=== PATIENT | male | born 1975 | race Hispanic/Latino ===

== ENCOUNTER 2016-07-13 00:36 | Emergency (ER) | payer OTHER ==
[2016-07-13 01:22] LABS: BASO # 0.1 K/mm3 (0.0-0.2); BASO % 0.7 % (0.0-1.0); EOS # 0.4 K/mm3 (0.0-0.50); LARGE UNSTAINED CELL # 0.3 K/mm3 (0.0-0.4); LARGE UNSTAINED CELL % 3.3 % (0.0-4.0); LYMPH # 3.7 K/mm3 (1.5-4.5); LYMPH % 35.6 % (24.0-44.0); MEAN CORPUSCULAR HEMOGLOBIN 29.6 pg (27.0-33.0); MEAN CORPUSCULAR HGB CONC 33.9 g/dl (32.0-36.5); MEAN CORPUSCULAR VOLUME 87.4 fl (80.0-96.0); MONO # 0.7 K/mm3 (0.0-0.8); MONO % 6.6 % (0.0-5.0); NEUTROPHILS # 5.2 K/mm3 (1.8-7.7); NEUTROPHILS % 49.7 % (36.0-66.0); PLATELET COUNT, AUTOMATED 295 k/mm3 (150-450); RED CELL DISTRIBUTION WIDTH 12.9 % (11.5-14.5); WHITE BLOOD COUNT 10.4 K/mm3 (4.0-10.0)
[2016-07-13] MEDS ORDERED: KETOROLAC 30 MG/ML VIAL (J1885) As Ordered ONE (01:24)
--- NOTE | 2016-07-13 01:30 | REPUSA ---
CT of the abdomen and pelvis without contrast Clinical statement: Pain. Technique: Multiple axial CT images were obtained from the base of the lungs to the floor of the pelv is utilizing 5 mm axial slices without administration of contrast. Coronal and sagittal reconstructio ns were also obtained. No comparison is available. Findings: Chest: The visualized lung bases are clear. Abdomen: The kidneys are normal in size bilaterally. There is moderate right-sided hydronephrosis cau sed by a 3 mm obstructing stone in the proximal right ureter. The left renal collecting system is unr emarkable. The liver, spleen, pancreas, gallbladder and adrenal glands are unremarkable. The aorta de monstrates normal caliber and contour. There is no abdominal lymphadenopathy or ascites. Pelvis: The bowel is unremarkable, with no obstructive or inflammatory changes. The appendix is doroteo l. The urinary bladder is within normal limits. There is no pelvic lymphadenopathy or ascites. The ot her pelvic structures appear unremarkable. Bones: There are no suspicious osseous abnormalities seen. Impression: 1. Moderate right-sided hydronephrosis caused by a 3 mm obstructing stone in the proximal right urete r. 2. No obstructive or inflammatory bowel changes.
[2016-07-13 01:45] LABS: ALBUMIN/GLOBULIN RATIO 1.11 (1.00-1.93); ALKALINE PHOSPHATASE 91 U/L (45-117); ALT/SGPT 39 U/L (12-78); AMYLASE 109 U/L (25-115); ANION GAP 9 MEQ/L (8-16); AST/SGOT 25 U/L (15-37); BILIRUBIN,DIRECT 0.2 MG/DL (0.0-0.2); BILIRUBIN,TOTAL 1.1 MG/DL (0.2-1.0); BLOOD UREA NITROGEN 15 MG/DL (7-18); CALCIUM LEVEL 8.6 MG/DL (8.5-10.1); CARBON DIOXIDE LEVEL 28 MEQ/L (21-32); CHLORIDE LEVEL 105 MEQ/L (98-107); CREATININE FOR GFR 1.37 MG/DL (0.70-1.30); GLOMERULAR FILTRATION RATE > 60.0 (>60); GLUCOSE, FASTING 118 MG/DL (70-105); POTASSIUM SERUM 3.8 MEQ/L (3.5-5.1); SODIUM LEVEL 142 MEQ/L (136-145); TOTAL PROTEIN 7.6 GM/DL (6.4-8.2)
[2016-07-13] MEDS ORDERED: TAMSULOSIN 0.4 MG CAP As Ordered ONE (01:54)
[2016-07-13] MEDS ORDERED: HYDROmorphone HCL 1 MG/ML SYRINGE (J1170) As Ordered ONE (03:16)
--- NOTE | 2016-07-13 05:52 | EDDOCDS ---
Physician Documentation [facility] Name: Sina Scott Age: 40 yrs Sex: Male : 1975 Arrival Date: 07/13/2016 Time: 00:36 Bed 9 Private MD: Disposition: 07/13/16 05:34 Discharged to Home/Self Care. Impression: Calculus of ureter. - Condition is Stable. - Prescriptions for [place] 5- 325 mg Oral Tablet - take 1 tablet by ORAL route every 6 hours As needed MDD: 4 tabs; 20 tablet. Flomax 0.4 mg Oral Capsule, Sust. Release 24 hr - take 1 capsule by ORAL route once daily 1/2 hour following the same meal each day; 30 capsule. - Medication Reconciliation, Local Pharmacy Hours form. - Follow up: Isidoro Sow; When: Call to arrange an appointment; Reason: Recheck today's complaints, To establish care. - Problem is new. - Symptoms have improved. Historical: - Allergies: No known drug Allergies; - Home Meds: 1. none - PMHx: none; - PSHx: none; - Social history: Smoking status: Patient states was never smoker of tobacco. No barriers to communication noted, The patient speaks fluent Ghanaian, Speaks appropriately for age. - Family history: Not pertinent. - : The pt / caregiver states he / she is not on anticoagulants. Home medication list is obtained from the patient. - Exposure Risk Screening:: None identified. Vital Signs: 07/13 00:55 BP 136 / 72; Pulse 62; Resp 16; Temp 98.5(TE); Pulse Ox 98% on R/A; Weight 79.38 kg / jo3 175 lbs; Height 5 ft. 6 in. (167.64 cm); Pain 10/10; 01:57 Pain 5/10; af2 04:27 BP 113 / 67; Pulse 67; Resp 18 S; Temp 97.6(TE); Pulse Ox 98% on R/A; af2 05:42 BP 110 / 65; Pulse 69; Resp 20; Temp 96.4(O); Pulse Ox 97% on R/A; Pain 0/10; jmv 00:55 Body Mass Index 28.25 (79.38 kg, 167.64 cm) jo3 MDM: 01:01 IV Saline Lock ordered. cs11 01:01 NS 0.9% 1000 ml IV at bolus once ordered. cs11 01:01 ketorolac 30 mg IVP once ordered. cs11 01:02 CBC with Diff Ordered. EDMS 01:02 MED Profile Ordered. EDMS 01:02 Liver Profile Ordered. EDMS 01:02 Amylase Ordered. EDMS 01:02 Lipase Ordered. EDMS 01:02 Urinalysis Ordered. EDMS 01:02 Urine Culture Ordered. EDMS 01:02 CT ABD & PELVIS: No Contrast Ordered. EDMS 01:28 Tamsulosin Extended Release 24 hour Capsule 0.4 mg PO once ordered. cs11 02:14 Financial registration complete. hs2 02:14 [facility] [place] was scanned into [employer] and attached to record. hs2 03:00 NS 0.9% 1000 ml IV at bolus once ordered. cs11 03:00 Dilaudid - HYDROmorphone 0.5 mg IVP once ordered. cs11 05:31 CBC with Diff Reviewed. cs11 05:31 MED Profile Reviewed. cs11 05:31 Liver Profile Reviewed. cs11 05:31 Urinalysis Reviewed. cs11 05:31 Amylase Reviewed. cs11 05:31 Lipase Reviewed. cs11 05:31 CT ABD & PELVIS: No Contrast Reviewed. cs11 Administered Medications: 01:27 Drug: NS 0.9% 1000 ml [sodium chloride 0.9 % intravenous solution] Route: IV; Rate: af2 bolus; Site: right antecubital; 03:04 Follow up: IV Status: Completed infusion af2 01:27 Drug: ketorolac 30 mg [ketorolac 30 mg/mL (1 mL) injection solution (1 mL)] Route: IVP; af2 Site: right antecubital; 01:57 Follow up: Pain 5/10 Adult; Response: Pain is decreased af2 01:57 Drug: Tamsulosin 0.4 mg [tamsulosin 0.4 mg capsule (1 caps)] Route: PO; af2 02:12 Follow up: Response: No Adverse Reaction af2 03:23 Drug: NS 0.9% 1000 ml [sodium chloride 0.9 % intravenous solution] Route: IV; Rate: af2 bolus; Site: right antecubital; 04:27 Follow up: IV Status: Completed infusion af2 03:23 Drug: Dilaudid - HYDROmorphone 0.5 mg [hydromorphone 1 mg/mL injection syringe (0.5 af2 mL)] Route: IVP; Site: right antecubital; 04:27 Follow up: Response: Pain is decreased af2 Signatures: Dispatcher [employer] Teresa PazRN RN jo3 Pieter Glez, DO DO cs11 Alayna Greene RN RN af2 Marla Redding, Reg Reg hs2 The chart was reviewed and I authenticate all verbal orders and agree with the evaluation and treatment provided.Attachments: 02:14 [facility] Payment Agreement hs2 MTDD
--- NOTE | 2016-07-13 05:52 | EDDOCDS ---
Nurse's Notes [facility] Name: Sina Scott Age: 40 yrs Sex: Male : 1975 Arrival Date: 07/13/2016 Time: 00:36 Bed 9 Private MD: Diagnosis: Calculus of ureter Presentation: 07/13 00:54 Presenting complaint: Patient states: Right sided flank pain that started approximately jo3 2 hours ago. Also reports nausea and vomiting. Acute neurological deficits are not present. Mechanism of Injury: No Mechanism of Injury. Adult Sepsis Screening: The patient does not have new or worsening altered mentation. Patient's respiratory rate is less than 22. Systolic blood pressure is greater than 100. Patient has a qSOFA score of 0- Negative Sepsis Screen. Suicide/Homicide risk assessment- the patient denies having any suicidal and/or homicidal ideations and does not present with any other emotional, behavioral or mental health complaints. Status: The patient is an active duty public service officer. Transition of care: patient was not received from another setting of care. 00:54 Acuity: DIONY Level 3 jo3 00:54 Method Of Arrival: Walkin/Carried/Asstd jo3 Triage Assessment: 00:55 General: Appears in no apparent distress, uncomfortable, Behavior is appropriate for jo3 age, cooperative. Pain: Pain At worst was 10 out of 10 on a pain scale. HIV screening NA for this visit Offered previously. Neurological: Level of Consciousness is awake, alert, Oriented to person, place, time. Respiratory: Airway is patent Respiratory effort is even, unlabored. Derm: Skin is pink, warm & dry. Historical: - Allergies: No known drug Allergies; - Home Meds: 1. none - PMHx: none; - PSHx: none; - Social history: Smoking status: Patient states was never smoker of tobacco. No barriers to communication noted, The patient speaks fluent Gabonese, Speaks appropriately for age. - Family history: Not pertinent. - : The pt / caregiver states he / she is not on anticoagulants. Home medication list is obtained from the patient. - Exposure Risk Screening:: None identified. Screenin:15 Screening information is obtained from the patient. Fall risk: No risks identified. af2 Assistance ADL's: requires no assistance with activities of daily living. Abuse/DV Screen: The patient / caregiver reports he/she is: not in a situation that causes fear, pain or injury. Nutritional screening: No deficits noted. Advance Directives: There is no active DNR order. home support is adequate. Assessment: 01:16 General: Appears in no apparent distress, comfortable, Behavior is appropriate for age, af2 cooperative. Respiratory: Airway is patent Respiratory effort is even, unlabored. : Reports hematuria pain in bilateral flank(s). 01:57 Musculoskeletal: No deficits noted. af2 03:00 General: Appears in no apparent distress, comfortable, Behavior is appropriate for age, af2 cooperative. Respiratory: Airway is patent Respiratory effort is even, unlabored. : Reports pain in bilateral flank(s). 04:00 General: Appears in no apparent distress, comfortable, Behavior is appropriate for age, af2 cooperative. Respiratory: Airway is patent Respiratory effort is even, unlabored. : Denies pain in bilateral in lower back. Vital Signs: 00:55 BP 136 / 72; Pulse 62; Resp 16; Temp 98.5(TE); Pulse Ox 98% on R/A; Weight 79.38 kg; jo3 Height 5 ft. 6 in. (167.64 cm); Pain 10/10; 01:57 Pain 5/10; af2 04:27 BP 113 / 67; Pulse 67; Resp 18 S; Temp 97.6(TE); Pulse Ox 98% on R/A; af2 05:42 BP 110 / 65; Pulse 69; Resp 20; Temp 96.4(O); Pulse Ox 97% on R/A; Pain 0/10; jmv 00:55 Body Mass Index 28.25 (79.38 kg, 167.64 cm) jo3 Vitals: 00:55 Log In Time: July 13, 2016 at 00:48. jo3 ED Course: 00:37 Patient visited by Marla Redding Reg. hs2 00:37 Patient moved to Waiting hs2 00:55 Triage Initiated jo3 00:57 Patient visited by Teresa Escoto RN. jo3 00:57 Alayna Greene,RN is Primary Nurse. jo3 00:57 Patient moved to 9 jo3 00:59 Pieter Glez DO is Attending Physician. cs11 00:59 Patient visited by Pieter Glez DO. cs11 01:15 The patient / caregiver is instructed regarding the plan of care and ED course. Patient af2 has correct armband on for positive identification. 01:15 Urine Culture Sent. af2 01:15 Urinalysis Sent. af2 01:15 Lipase Sent. af2 01:15 Amylase Sent. af2 01:15 Liver Profile Sent. af2 01:15 MED Profile Sent. af2 01:15 CBC with Diff Sent. af2 01:16 Inserted saline lock: 20 gauge in right antecubital area and blood collected. The af2 patient tolerated the procedure well. 01:16 No procedures done that require assistance. af2 01:17 Patient visited by Alayna Greene RN. af2 01:52 Patient visited by Alayna Greene RN. af2 01:57 CT ABD & PELVIS: No Contrast Returned. EDMS 01:58 Patient visited by Alayna Greene RN. af2 02:14 [facility] Payment Agreement was scanned into [employer] and attached to record. hs2 03:03 Patient visited by Alayna Greene RN. af2 03:30 Patient visited by Alayna Greene RN. af2 04:25 Patient visited by Alayna Greene RN. af2 04:58 Patient visited by Alayna Greene RN. af2 05:33 Isidoro Sow is Referral Physician. cs11 05:43 Patient visited by Nicholas Latif PCA. peter Administered Medications: 01:27 Drug: NS 0.9% 1000 ml [sodium chloride 0.9 % intravenous solution] Route: IV; Rate: af2 bolus; Site: right antecubital; 03:04 Follow up: IV Status: Completed infusion af2 01:27 Drug: ketorolac 30 mg [ketorolac 30 mg/mL (1 mL) injection solution (1 mL)] Route: IVP; af2 Site: right antecubital; :57 Follow up: Pain 5/10 Adult; Response: Pain is decreased af2 01:57 Drug: Tamsulosin 0.4 mg [tamsulosin 0.4 mg capsule (1 caps)] Route: PO; af2 02:12 Follow up: Response: No Adverse Reaction af2 03:23 Drug: NS 0.9% 1000 ml [sodium chloride 0.9 % intravenous solution] Route: IV; Rate: af2 bolus; Site: right antecubital; 04:27 Follow up: IV Status: Completed infusion af2 03:23 Drug: Dilaudid - HYDROmorphone 0.5 mg [hydromorphone 1 mg/mL injection syringe (0.5 af2 mL)] Route: IVP; Site: right antecubital; 04:27 Follow up: Response: Pain is decreased af2 Order Results: Lab Order: CBC with Diff; SPEC'M 07/13/16 01:12 Test: WHITE BLOOD COUNT; Value: 10.4; Range: 4.0-10.0; Abnormal: Above high normal; Units: K/mm3; Status: F Test: RED BLOOD COUNT; Value: 5.09; Range: 4.30-6.10; Units: M/mm3; Status: F Test: HEMOGLOBIN; Value: 15.1; Range: 14.0-18.0; Units: g/dl; Status: F Test: HEMATOCRIT; Value: 44.4; Range: 42.0-52.0; Units: %; Status: F Test: MEAN CORPUSCULAR VOLUME; Value: 87.4; Range: 80.0-96.0; Units: fl; Status: F Test: MEAN CORPUSCULAR HEMOGLOBIN; Value: 29.6; Range: 27.0-33.0; Units: pg; Status: F Test: MEAN CORPUSCULAR HGB CONC; Value: 33.9; Range: 32.0-36.5; Units: g/dl; Status: F Test: RED CELL DISTRIBUTION WIDTH; Value: 12.9; Range: 11.5-14.5; Units: %; Status: F Test: PLATELET COUNT, AUTOMATED; Value: 295; Range: 150-450; Units: k/mm3; Status: F Test: NEUTROPHILS %; Value: 49.7; Range: 36.0-66.0; Units: %; Status: F Test: LYMPH %; Value: 35.6; Range: 24.0-44.0; Units: %; Status: F Test: MONO %; Value: 6.6; Range: 0.0-5.0; Abnormal: Above high normal; Units: %; Status: F Test: EOS %; Value: 4.0; Range: 0.0-3.0; Abnormal: Above high normal; Units: %; Status: F Test: BASO %; Value: 0.7; Range: 0.0-1.0; Units: %; Status: F Test: LARGE UNSTAINED CELL %; Value: 3.3; Range: 0.0-4.0; Units: %; Status: F Test: NEUTROPHILS #; Value: 5.2; Range: 1.8-7.7; Units: K/mm3; Status: F Test: LYMPH #; Value: 3.7; Range: 1.5-4.5; Units: K/mm3; Status: F Test: MONO #; Value: 0.7; Range: 0.0-0.8; Units: K/mm3; Status: F Test: EOS #; Value: 0.4; Range: 0.0-0.50; Units: K/mm3; Status: F Test: BASO #; Value: 0.1; Range: 0.0-0.2; Units: K/mm3; Status: F Test: LARGE UNSTAINED CELL #; Value: 0.3; Range: 0.0-0.4; Units: K/mm3; Status: F Lab Order: MED Profile; [facility] 07/13/16 01:12 Test: GLUCOSE, FASTING; Value: 118; Range: 70-105; Abnormal: Above high normal; Units: MG/DL; Status: F Test: BLOOD UREA NITROGEN; Value: 15; Range: 7-18; Units: MG/DL; Status: F Test: CREATININE FOR GFR; Value: 1.37; Range: 0.70-1.30; Abnormal: Above high normal; Units: MG/DL; Status: F Test: GLOMERULAR FILTRATION RATE; Value: > 60.0; Range: >60; Status: F Test: SODIUM LEVEL; Value: 142; Range: 136-145; Units: MEQ/L; Status: F Test: POTASSIUM SERUM; Value: 3.8; Range: 3.5-5.1; Units: MEQ/L; Status: F Test: CHLORIDE LEVEL; Value: 105; Range: 98-107; Units: MEQ/L; Status: F Test: CARBON DIOXIDE LEVEL; Value: 28; Range: 21-32; Units: MEQ/L; Status: F Test: ANION GAP; Value: 9; Range: 8-16; Units: MEQ/L; Status: F Test: CALCIUM LEVEL; Value: 8.6; Range: 8.5-10.1; Units: MG/DL; Status: F Test Note: ; Units are mL/min/1.73 m2 Chronic Kidney Disease Staging per NKF: Stage I & II GFR >=60 Normal to Mildly Decreased Stage III GFR 30-59 Moderately Decreased Stage IV GFR 15-29 Severely Decreased Stage V GFR <15 Very Little GFR Left ESRD GFR <15 on ACTUARIAL ASSOCIATE Lab Order: Liver Profile; 07/13/16 01:12 Test: AST/SGOT; Value: 25; Range: 15-37; Units: U/L; Status: F Test: ALT/SGPT; Value: 39; Range: 12-78; Units: U/L; Status: F Test: ALKALINE PHOSPHATASE; Value: 91; Range: 45-117; Units: U/L; Status: F Test: BILIRUBIN,TOTAL; Value: 1.1; Range: 0.2-1.0; Abnormal: Above high normal; Units: MG/DL; Status: F Test: BILIRUBIN,DIRECT; Value: 0.2; Range: 0.0-0.2; Units: MG/DL; Status: F Test: TOTAL PROTEIN; Value: 7.6; Range: 6.4-8.2; Units: GM/DL; Status: F Test: ALBUMIN; Value: 4.0; Range: 3.2-5.2; Units: GM/DL; Status: F Test: ALBUMIN/GLOBULIN RATIO; Value: 1.11; Range: 1.00-1.93; Status: F Lab Order: Amylase; [facility]07/13/16 01:12 Test: AMYLASE; Value: 109; Range: 25-115; Units: U/L; Status: F Lab Order: Lipase; [facility]07/13/16 01:12 Test: LIPASE; Value: 167; Range: 73-393; Units: U/L; Status: F Lab Order: Urinalysis; 07/13/16 01:12 Test: APPEARANCE, URINE; Value: HAZY; Range: CLEAR; Status: F Test: COLOR, URINE; Value: YELLOW; Range: YELLOW; Status: F Test: PH,URINE; Value: 6.0; Range: 5.0-9.0; Units: UNITS; Status: F Test: SPECIFIC GRAVITY URINE AUTO; Value: 1.024; Range: 1.002-1.035; Status: F Test: PROTEIN, URINE AUTO; Value: 1+; Range: NEGATIVE; Abnormal: Above high normal; Units: mg/dL; Status: F Test: GLUCOSE, URINE (UA) AUTO; Value: NEGATIVE; Range: NEGATIVE; Units: mg/dL; Status: F Test: KETONE, URINE AUTO; Value: NEGATIVE; Range: NEGATIVE; Units: mg/dL; Status: F Test: UROBILINOGEN, URINE AUTO; Value: 0.2; Range: 0.0-2.0; Units: mg/dL; Status: F Test: BILIRUBIN, URINE AUTO; Value: NEGATIVE; Range: NEGATIVE; Status: F Test: NITRITE, URINE AUTO; Value: NEGATIVE; Range: NEGATIVE; Status: F Test: LEUKOCYTE ESTERASE, URINE AUTO; Value: NEGATIVE; Range: NEGATIVE; Status: F Test: BLOOD, URINE BLOOD; Value: 3+; Range: NEGATIVE; Abnormal: Above high normal; Status: F Test: WBC, URINE AUTO; Value: 3; Range: 0-3; Units: /HPF; Status: F Test: RBC, URINE AUTO; Value: TNTC; Range: 0-3; Abnormal: Above high normal; Units: /HPF; Status: F Test: BACTERIA, URINE AUTO; Value: NEGATIVE; Range: NEGATIVE; Status: F Test: SQUAMOUS EPITHELIAL CELL UR AU; Value: 0; Range: 0-6; Units: /HPF; Status: F Test: MUCUS, URINE; Value: SMALL; Range: NEGATIVE; Status: F Test: HYALINE CAST, URINE AUTO; Value: 0; Range: 0-1; Units: /LPF; Status: F Radiology Order: CT ABD & PELVIS: No Contrast Test: CT ABD & PELVIS: No Contrast REASON FOR EXAMINATION: Renal colic; ; CT of the abdomen and pelvis without contrast; Clinical statement: Pain.; Technique: Multiple axial CT images were obtained from the base of the lungs to the floor of the pelv; is utilizing 5 mm axial slices without administration of contrast. Coronal and sagittal reconstructio; ns were also obtained.; No comparison is available.; Findings:; Chest: The visualized lung bases are clear.; Abdomen: The kidneys are normal in size bilaterally. There is moderate right-sided hydronephrosis cau; sed by a 3 mm obstructing stone in the proximal right ureter. The left renal collecting system is unr; emarkable. The liver, spleen, pancreas, gallbladder and adrenal glands are unremarkable. The aorta de; monstrates normal caliber and contour. There is no abdominal lymphadenopathy or ascites.; Pelvis: The bowel is unremarkable, with no obstructive or inflammatory changes. The appendix is doroteo; l. The urinary bladder is within normal limits. There is no pelvic lymphadenopathy or ascites. The ot; her pelvic structures appear unremarkable.; Bones: There are no suspicious osseous abnormalities seen.; Impression:; 1. Moderate right-sided hydronephrosis caused by a 3 mm obstructing stone in the proximal right urete; r.; 2. No obstructive or inflammatory bowel changes.; ; Outcome: 05:34 Discharge ordered by Provider. cs11 05:50 Discharge Assessment: Patient awake, alert and oriented x 3. No cognitive and/or af2 functional deficits noted. Patient verbalized understanding of disposition instructions. patient administered narcotics - no. The following High Risk Discharge criteria are identified: None. Discharged to home ambulatory. Condition: stable. Discharge instructions given to patient, Instructed on discharge instructions, follow up and referral plans. medication usage, Demonstrated understanding of instructions, medications, Pt was receptive of discharge instructions/ teaching. No special radiology studies were completed. Property :Personal belongings accompany Pt. 05:51 Patient left the ED. af2 Signatures: Dispatcher [employer] EDSD Teresa Escoto RN RN jo3 Pieter Glez, DO DO cs11 Alayna Greene RN RN af2 Marla Redding, Reg Reg hs2 Nicholas Latif, MERCHANDISING MANAGER MERCHANDISING MANAGER jmv MTDD
--- NOTE | 2016-07-15 06:51 | EDDOCDS ---
Physician Documentation [facility] Name: Sina Scott Age: 40 yrs Sex: Male : 1975 Arrival Date: 07/13/2016 Time: 00:36 Bed 9 Private MD: Disposition: 07/13/16 05:34 Discharged to Home/Self Care. Impression: Calculus of ureter. - Condition is Stable. - Prescriptions for [place] 5- 325 mg Oral Tablet - take 1 tablet by ORAL route every 6 hours As needed MDD: 4 tabs; 20 tablet. Flomax 0.4 mg Oral Capsule, Sust. Release 24 hr - take 1 capsule by ORAL route once daily 1/2 hour following the same meal each day; 30 capsule. - Medication Reconciliation, Local Pharmacy Hours form. - Follow up: Isidoro Sow; When: Call to arrange an appointment; Reason: Recheck today's complaints, To establish care. - Problem is new. - Symptoms have improved. Historical: - Allergies: No known drug Allergies; - Home Meds: 1. none - PMHx: none; - PSHx: none; - Social history: Smoking status: Patient states was never smoker of tobacco. No barriers to communication noted, The patient speaks fluent Czech, Speaks appropriately for age. - Family history: Not pertinent. - : The pt / caregiver states he / she is not on anticoagulants. Home medication list is obtained from the patient. - Exposure Risk Screening:: None identified. Vital Signs: 07/13 00:55 BP 136 / 72; Pulse 62; Resp 16; Temp 98.5(TE); Pulse Ox 98% on R/A; Weight 79.38 kg / jo3 175 lbs; Height 5 ft. 6 in. (167.64 cm); Pain 10/10; 01:57 Pain 5/10; af2 04:27 BP 113 / 67; Pulse 67; Resp 18 S; Temp 97.6(TE); Pulse Ox 98% on R/A; af2 05:42 BP 110 / 65; Pulse 69; Resp 20; Temp 96.4(O); Pulse Ox 97% on R/A; Pain 0/10; jmv 00:55 Body Mass Index 28.25 (79.38 kg, 167.64 cm) jo3 MDM: 01:01 IV Saline Lock ordered. cs11 01:01 NS 0.9% 1000 ml IV at bolus once ordered. cs11 01:01 ketorolac 30 mg IVP once ordered. cs11 01:02 CBC with Diff Ordered. EDMS 01:02 MED Profile Ordered. EDMS 01:02 Liver Profile Ordered. EDMS 01:02 Amylase Ordered. EDMS 01:02 Lipase Ordered. EDMS 01:02 Urinalysis Ordered. EDMS 01:02 Urine Culture Ordered. EDMS 01:02 CT ABD & PELVIS: No Contrast Ordered. EDMS 01:28 Tamsulosin Extended Release 24 hour Capsule 0.4 mg PO once ordered. cs11 02:14 Financial registration complete. hs2 02:14 [facility] [place] Payment Agreement was scanned into [employer] and attached to record. hs2 03:00 NS 0.9% 1000 ml IV at bolus once ordered. cs11 03:00 Dilaudid - HYDROmorphone 0.5 mg IVP once ordered. cs11 05:31 CBC with Diff Reviewed. cs11 05:31 MED Profile Reviewed. cs11 05:31 Liver Profile Reviewed. cs11 05:31 Urinalysis Reviewed. cs11 05:31 Amylase Reviewed. cs11 05:31 Lipase Reviewed. cs11 05:31 CT ABD & PELVIS: No Contrast Reviewed. cs11 09:02 T-Sheet-- Draft Copy was scanned into [employer] and attached to record. [facility] Administered Medications: 01:27 Drug: NS 0.9% 1000 ml [sodium chloride 0.9 % intravenous solution] Route: IV; Rate: af2 bolus; Site: right antecubital; 03:04 Follow up: IV Status: Completed infusion af2 01:27 Drug: ketorolac 30 mg [ketorolac 30 mg/mL (1 mL) injection solution (1 mL)] Route: IVP; af2 Site: right antecubital; :57 Follow up: Pain 5/10 Adult; Response: Pain is decreased af2 01:57 Drug: Tamsulosin 0.4 mg [tamsulosin 0.4 mg capsule (1 caps)] Route: PO; af2 02:12 Follow up: Response: No Adverse Reaction af2 03:23 Drug: NS 0.9% 1000 ml [sodium chloride 0.9 % intravenous solution] Route: IV; Rate: af2 bolus; Site: right antecubital; 04:27 Follow up: IV Status: Completed infusion af2 03:23 Drug: Dilaudid - HYDROmorphone 0.5 mg [hydromorphone 1 mg/mL injection syringe (0.5 af2 mL)] Route: IVP; Site: right antecubital; 04:27 Follow up: Response: Pain is decreased af2 Signatures: Dispatcher [employer] EDTeresa Tipton RN RN jo3 Pieter Glez, DO DO cs11 Alayna Greene RN RN af2 Marla Redding, Reg Reg hs2 Maia Elizabeth The chart was reviewed and I authenticate all verbal orders and agree with the evaluation and treatment provided.Attachments: 02:14 [facility] Payment Agreement hs2 09:02 T-Sheet-- Draft Copy [facility] Chart Complete MTDD
--- NOTE | 2016-07-15 06:51 | EDDOCDS ---
Physician Documentation [facility] Name: Sina Scott Age: 40 yrs Sex: Male : 1975 Arrival Date: 07/13/2016 Time: 00:36 Bed 9 Private MD: Disposition: 07/13/16 05:34 Discharged to Home/Self Care. Impression: Calculus of ureter. - Condition is Stable. - Prescriptions for Clemons 5- 325 mg Oral Tablet - take 1 tablet by ORAL route every 6 hours As needed MDD: 4 tabs; 20 tablet. Flomax 0.4 mg Oral Capsule, Sust. Release 24 hr - take 1 capsule by ORAL route once daily 1/2 hour following the same meal each day; 30 capsule. - Medication Reconciliation, Local Pharmacy Hours form. - Follow up: Isidoro Sow; When: Call to arrange an appointment; Reason: Recheck today's complaints, To establish care. - Problem is new. - Symptoms have improved. Historical: - Allergies: No known drug Allergies; - Home Meds: 1. none - PMHx: none; - PSHx: none; - Social history: Smoking status: Patient states was never smoker of tobacco. No barriers to communication noted, The patient speaks fluent Austrian, Speaks appropriately for age. - Family history: Not pertinent. - : The pt / caregiver states he / she is not on anticoagulants. Home medication list is obtained from the patient. - Exposure Risk Screening:: None identified. Vital Signs: 07/13 00:55 BP 136 / 72; Pulse 62; Resp 16; Temp 98.5(TE); Pulse Ox 98% on R/A; Weight 79.38 kg / jo3 175 lbs; Height 5 ft. 6 in. (167.64 cm); Pain 10/10; 01:57 Pain 5/10; af2 04:27 BP 113 / 67; Pulse 67; Resp 18 S; Temp 97.6(TE); Pulse Ox 98% on R/A; af2 05:42 BP 110 / 65; Pulse 69; Resp 20; Temp 96.4(O); Pulse Ox 97% on R/A; Pain 0/10; jmv 00:55 Body Mass Index 28.25 (79.38 kg, 167.64 cm) jo3 MDM: 01:01 IV Saline Lock ordered. cs11 01:01 NS 0.9% 1000 ml IV at bolus once ordered. cs11 01:01 ketorolac 30 mg IVP once ordered. cs11 01:02 CBC with Diff Ordered. EDMS 01:02 MED Profile Ordered. EDMS 01:02 Liver Profile Ordered. EDMS 01:02 Amylase Ordered. EDMS 01:02 Lipase Ordered. EDMS 01:02 Urinalysis Ordered. EDMS 01:02 Urine Culture Ordered. EDMS 01:02 CT ABD & PELVIS: No Contrast Ordered. EDMS 01:28 Tamsulosin Extended Release 24 hour Capsule 0.4 mg PO once ordered. cs11 02:14 Financial registration complete. hs2 02:14 [facility] Payment Agreement was scanned into [employer] and attached to record. hs2 03:00 NS 0.9% 1000 ml IV at bolus once ordered. cs11 03:00 Dilaudid - HYDROmorphone 0.5 mg IVP once ordered. cs11 05:31 CBC with Diff Reviewed. cs11 05:31 MED Profile Reviewed. cs11 05:31 Liver Profile Reviewed. cs11 05:31 Urinalysis Reviewed. cs11 05:31 Amylase Reviewed. cs11 05:31 Lipase Reviewed. cs11 05:31 CT ABD & PELVIS: No Contrast Reviewed. cs11 09:02 T-Sheet-- Draft Copy was scanned into [employer] and attached to record. [facility] Administered Medications: 01:27 Drug: NS 0.9% 1000 ml [sodium chloride 0.9 % intravenous solution] Route: IV; Rate: af2 bolus; Site: right antecubital; 03:04 Follow up: IV Status: Completed infusion af2 01:27 Drug: ketorolac 30 mg [ketorolac 30 mg/mL (1 mL) injection solution (1 mL)] Route: IVP; af2 Site: right antecubital; :57 Follow up: Pain 5/10 Adult; Response: Pain is decreased af2 01:57 Drug: Tamsulosin 0.4 mg [tamsulosin 0.4 mg capsule (1 caps)] Route: PO; af2 02:12 Follow up: Response: No Adverse Reaction af2 03:23 Drug: NS 0.9% 1000 ml [sodium chloride 0.9 % intravenous solution] Route: IV; Rate: af2 bolus; Site: right antecubital; 04:27 Follow up: IV Status: Completed infusion af2 03:23 Drug: Dilaudid - HYDROmorphone 0.5 mg [hydromorphone 1 mg/mL injection syringe (0.5 af2 mL)] Route: IVP; Site: right antecubital; 04:27 Follow up: Response: Pain is decreased af2 Signatures: Dispatcher [employer] EDTeresa Tipton RN RN jo3 Pieter Glez, DO DO cs11 Alayna Greene RN RN af2 Marla Redding, Reg Reg hs2 Maia Elizabeth The chart was reviewed and I authenticate all verbal orders and agree with the evaluation and treatment provided.Attachments: 02:14 [facility] Payment Agreement hs2 09:02 T-Sheet-- Draft Copy [facility] Chart Complete MTDD
--- NOTE | 2016-07-15 06:51 | EDDOCDS ---
Nurse's Notes [facility] Name: Sina Scott Age: 40 yrs Sex: Male : 1975 Arrival Date: 07/13/2016 Time: 00:36 Bed 9 Private MD: Diagnosis: Calculus of ureter Presentation: 07/13 00:54 Presenting complaint: Patient states: Right sided flank pain that started approximately jo3 2 hours ago. Also reports nausea and vomiting. Acute neurological deficits are not present. Mechanism of Injury: No Mechanism of Injury. Adult Sepsis Screening: The patient does not have new or worsening altered mentation. Patient's respiratory rate is less than 22. Systolic blood pressure is greater than 100. Patient has a qSOFA score of 0- Negative Sepsis Screen. Suicide/Homicide risk assessment- the patient denies having any suicidal and/or homicidal ideations and does not present with any other emotional, behavioral or mental health complaints. 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 Transition of care: patient was not received from another setting of care. 00:54 Acuity: DIONY Level 3 jo3 00:54 Method Of Arrival: Walkin/Carried/Asstd jo3 Triage Assessment: 00:55 General: Appears in no apparent distress, uncomfortable, Behavior is appropriate for jo3 age, cooperative. Pain: Pain At worst was 10 out of 10 on a pain scale. HIV screening NA for this visit Offered previously. Neurological: Level of Consciousness is awake, alert, Oriented to person, place, time. Respiratory: Airway is patent Respiratory effort is even, unlabored. Derm: Skin is pink, warm & dry. Historical: - Allergies: No known drug Allergies; - Home Meds: 1. none - PMHx: none; - PSHx: none; - Social history: Smoking status: Patient states was never smoker of tobacco. No barriers to communication noted, The patient speaks fluent Guyanese, Speaks appropriately for age. - Family history: Not pertinent. - : The pt / caregiver states he / she is not on anticoagulants. Home medication list is obtained from the patient. - Exposure Risk Screening:: None identified. Screenin:15 Screening information is obtained from the patient. Fall risk: No risks identified. af2 Assistance ADL's: requires no assistance with activities of daily living. Abuse/DV Screen: The patient / caregiver reports he/she is: not in a situation that causes fear, pain or injury. Nutritional screening: No deficits noted. Advance Directives: There is no active DNR order. home support is adequate. Assessment: 01:16 General: Appears in no apparent distress, comfortable, Behavior is appropriate for age, af2 cooperative. Respiratory: Airway is patent Respiratory effort is even, unlabored. : Reports hematuria pain in bilateral flank(s). 01:57 Musculoskeletal: No deficits noted. af2 03:00 General: Appears in no apparent distress, comfortable, Behavior is appropriate for age, af2 cooperative. Respiratory: Airway is patent Respiratory effort is even, unlabored. : Reports pain in bilateral flank(s). 04:00 General: Appears in no apparent distress, comfortable, Behavior is appropriate for age, af2 cooperative. Respiratory: Airway is patent Respiratory effort is even, unlabored. : Denies pain in bilateral in lower back. Vital Signs: 00:55 BP 136 / 72; Pulse 62; Resp 16; Temp 98.5(TE); Pulse Ox 98% on R/A; Weight 79.38 kg; jo3 Height 5 ft. 6 in. (167.64 cm); Pain 10/10; 01:57 Pain 5/10; af2 04:27 BP 113 / 67; Pulse 67; Resp 18 S; Temp 97.6(TE); Pulse Ox 98% on R/A; af2 05:42 BP 110 / 65; Pulse 69; Resp 20; Temp 96.4(O); Pulse Ox 97% on R/A; Pain 0/10; jmv 00:55 Body Mass Index 28.25 (79.38 kg, 167.64 cm) jo3 Vitals: 00:55 Log In Time: July 13, 2016 at 00:48. jo3 ED Course: 00:37 Patient visited by Marla Redding Reg. hs2 00:37 Patient moved to Waiting hs2 00:55 Triage Initiated jo3 00:57 Patient visited by Teresa Escoto RN. jo3 00:57 Alayna Greene,RN is Primary Nurse. jo3 00:57 Patient moved to 9 jo3 00:59 Pieter Glez DO is Attending Physician. cs11 00:59 Patient visited by Pieter Glez DO. cs11 01:15 The patient / caregiver is instructed regarding the plan of care and ED course. Patient af2 has correct armband on for positive identification. 01:15 Urine Culture Sent. af2 01:15 Urinalysis Sent. af2 01:15 Lipase Sent. af2 01:15 Amylase Sent. af2 01:15 Liver Profile Sent. af2 01:15 MED Profile Sent. af2 01:15 CBC with Diff Sent. af2 01:16 Inserted saline lock: 20 gauge in right antecubital area and blood collected. The af2 patient tolerated the procedure well. 01:16 No procedures done that require assistance. af2 01:17 Patient visited by Alayna Greene RN. af2 01:52 Patient visited by Alayna Greene RN. af2 01:57 CT ABD & PELVIS: No Contrast Returned. EDMS 01:58 Patient visited by Alayna Greene RN. af2 02:14 [facility] [place] Payment Agreement was scanned into [employer] and attached to record. hs2 03:03 Patient visited by Alayna Greene RN. af2 03:30 Patient visited by Alayna Greene RN. af2 04:25 Patient visited by Alayna Greene RN. af2 04:58 Patient visited by Alayna Greene RN. af2 05:33 Isidoro Sow is Referral Physician. cs11 05:43 Patient visited by Nicholas Latif PCA. jmv 09:02 T-Sheet-- Draft Copy was scanned into [employer] and attached to record. [facility] Administered Medications: 01:27 Drug: NS 0.9% 1000 ml [sodium chloride 0.9 % intravenous solution] Route: IV; Rate: af2 bolus; Site: right antecubital; 03:04 Follow up: IV Status: Completed infusion af2 :27 Drug: ketorolac 30 mg [ketorolac 30 mg/mL (1 mL) injection solution (1 mL)] Route: IVP; af2 Site: right antecubital; :57 Follow up: Pain 5/10 Adult; Response: Pain is decreased af2 :57 Drug: Tamsulosin 0.4 mg [tamsulosin 0.4 mg capsule (1 caps)] Route: PO; af2 02:12 Follow up: Response: No Adverse Reaction af2 03:23 Drug: NS 0.9% 1000 ml [sodium chloride 0.9 % intravenous solution] Route: IV; Rate: af2 bolus; Site: right antecubital; 04:27 Follow up: IV Status: Completed infusion af2 03:23 Drug: Dilaudid - HYDROmorphone 0.5 mg [hydromorphone 1 mg/mL injection syringe (0.5 af2 mL)] Route: IVP; Site: right antecubital; 04:27 Follow up: Response: Pain is decreased af2 Order Results: Lab Order: CBC with Diff; SPEC'M 07/13/16 01:12 Test: WHITE BLOOD COUNT; Value: 10.4; Range: 4.0-10.0; Abnormal: Above high normal; Units: K/mm3; Status: F Test: RED BLOOD COUNT; Value: 5.09; Range: 4.30-6.10; Units: M/mm3; Status: F Test: HEMOGLOBIN; Value: 15.1; Range: 14.0-18.0; Units: g/dl; Status: F Test: HEMATOCRIT; Value: 44.4; Range: 42.0-52.0; Units: %; Status: F Test: MEAN CORPUSCULAR VOLUME; Value: 87.4; Range: 80.0-96.0; Units: fl; Status: F Test: MEAN CORPUSCULAR HEMOGLOBIN; Value: 29.6; Range: 27.0-33.0; Units: pg; Status: F Test: MEAN CORPUSCULAR HGB CONC; Value: 33.9; Range: 32.0-36.5; Units: g/dl; Status: F Test: RED CELL DISTRIBUTION WIDTH; Value: 12.9; Range: 11.5-14.5; Units: %; Status: F Test: PLATELET COUNT, AUTOMATED; Value: 295; Range: 150-450; Units: k/mm3; Status: F Test: NEUTROPHILS %; Value: 49.7; Range: 36.0-66.0; Units: %; Status: F Test: LYMPH %; Value: 35.6; Range: 24.0-44.0; Units: %; Status: F Test: MONO %; Value: 6.6; Range: 0.0-5.0; Abnormal: Above high normal; Units: %; Status: F Test: EOS %; Value: 4.0; Range: 0.0-3.0; Abnormal: Above high normal; Units: %; Status: F Test: BASO %; Value: 0.7; Range: 0.0-1.0; Units: %; Status: F Test: LARGE UNSTAINED CELL %; Value: 3.3; Range: 0.0-4.0; Units: %; Status: F Test: NEUTROPHILS #; Value: 5.2; Range: 1.8-7.7; Units: K/mm3; Status: F Test: LYMPH #; Value: 3.7; Range: 1.5-4.5; Units: K/mm3; Status: F Test: MONO #; Value: 0.7; Range: 0.0-0.8; Units: K/mm3; Status: F Test: EOS #; Value: 0.4; Range: 0.0-0.50; Units: K/mm3; Status: F Test: BASO #; Value: 0.1; Range: 0.0-0.2; Units: K/mm3; Status: F Test: LARGE UNSTAINED CELL #; Value: 0.3; Range: 0.0-0.4; Units: K/mm3; Status: F Lab Order: MED Profile; SPEC'M 07/13/16 01:12 Test: GLUCOSE, FASTING; Value: 118; Range: 70-105; Abnormal: Above high normal; Units: MG/DL; Status: F Test: BLOOD UREA NITROGEN; Value: 15; Range: 7-18; Units: MG/DL; Status: F Test: CREATININE FOR GFR; Value: 1.37; Range: 0.70-1.30; Abnormal: Above high normal; Units: MG/DL; Status: F Test: GLOMERULAR FILTRATION RATE; Value: > 60.0; Range: >60; Status: F Test: SODIUM LEVEL; Value: 142; Range: 136-145; Units: MEQ/L; Status: F Test: POTASSIUM SERUM; Value: 3.8; Range: 3.5-5.1; Units: MEQ/L; Status: F Test: CHLORIDE LEVEL; Value: 105; Range: 98-107; Units: MEQ/L; Status: F Test: CARBON DIOXIDE LEVEL; Value: 28; Range: 21-32; Units: MEQ/L; Status: F Test: ANION GAP; Value: 9; Range: 8-16; Units: MEQ/L; Status: F Test: CALCIUM LEVEL; Value: 8.6; Range: 8.5-10.1; Units: MG/DL; Status: F Test Note: ; Units are mL/min/1.73 m2 Chronic Kidney Disease Staging per NKF: Stage I & II GFR >=60 Normal to Mildly Decreased Stage III GFR 30-59 Moderately Decreased Stage IV GFR 15-29 Severely Decreased Stage V GFR <15 Very Little GFR Left ESRD GFR <15 on FAMILY PROGRAM SPECIALIST Lab Order: Liver Profile; [facility] 07/13/16 01:12 Test: AST/SGOT; Value: 25; Range: 15-37; Units: U/L; Status: F Test: ALT/SGPT; Value: 39; Range: 12-78; Units: U/L; Status: F Test: ALKALINE PHOSPHATASE; Value: 91; Range: 45-117; Units: U/L; Status: F Test: BILIRUBIN,TOTAL; Value: 1.1; Range: 0.2-1.0; Abnormal: Above high normal; Units: MG/DL; Status: F Test: BILIRUBIN,DIRECT; Value: 0.2; Range: 0.0-0.2; Units: MG/DL; Status: F Test: TOTAL PROTEIN; Value: 7.6; Range: 6.4-8.2; Units: GM/DL; Status: F Test: ALBUMIN; Value: 4.0; Range: 3.2-5.2; Units: GM/DL; Status: F Test: ALBUMIN/GLOBULIN RATIO; Value: 1.11; Range: 1.00-1.93; Status: F Lab Order: Amylase; 07/13/16 01:12 Test: AMYLASE; Value: 109; Range: 25-115; Units: U/L; Status: F Lab Order: Lipase; 07/13/16 01:12 Test: LIPASE; Value: 167; Range: 73-393; Units: U/L; Status: F Lab Order: Urinalysis; 07/13/16 01:12 Test: APPEARANCE, URINE; Value: HAZY; Range: CLEAR; Status: F Test: COLOR, URINE; Value: YELLOW; Range: YELLOW; Status: F Test: PH,URINE; Value: 6.0; Range: 5.0-9.0; Units: UNITS; Status: F Test: SPECIFIC GRAVITY URINE AUTO; Value: 1.024; Range: 1.002-1.035; Status: F Test: PROTEIN, URINE AUTO; Value: 1+; Range: NEGATIVE; Abnormal: Above high normal; Units: mg/dL; Status: F Test: GLUCOSE, URINE (UA) AUTO; Value: NEGATIVE; Range: NEGATIVE; Units: mg/dL; Status: F Test: KETONE, URINE AUTO; Value: NEGATIVE; Range: NEGATIVE; Units: mg/dL; Status: F Test: UROBILINOGEN, URINE AUTO; Value: 0.2; Range: 0.0-2.0; Units: mg/dL; Status: F Test: BILIRUBIN, URINE AUTO; Value: NEGATIVE; Range: NEGATIVE; Status: F Test: NITRITE, URINE AUTO; Value: NEGATIVE; Range: NEGATIVE; Status: F Test: LEUKOCYTE ESTERASE, URINE AUTO; Value: NEGATIVE; Range: NEGATIVE; Status: F Test: BLOOD, URINE BLOOD; Value: 3+; Range: NEGATIVE; Abnormal: Above high normal; Status: F Test: WBC, URINE AUTO; Value: 3; Range: 0-3; Units: /HPF; Status: F Test: RBC, URINE AUTO; Value: TNTC; Range: 0-3; Abnormal: Above high normal; Units: /HPF; Status: F Test: BACTERIA, URINE AUTO; Value: NEGATIVE; Range: NEGATIVE; Status: F Test: SQUAMOUS EPITHELIAL CELL UR AU; Value: 0; Range: 0-6; Units: /HPF; Status: F Test: MUCUS, URINE; Value: SMALL; Range: NEGATIVE; Status: F Test: HYALINE CAST, URINE AUTO; Value: 0; Range: 0-1; Units: /LPF; Status: F Lab Order: Urine Culture; SPEC'M 07/13/16 01:12 Test: URINE CULTURE; Value: <EXTERNAL COMMENT eCWMed> FULL REPORT IN LAB NOTES (eCW and Medent).; Status: F Test: URINE CULTURE; Value: URINE CULTURE RESULT NO GROWTH; Status: F Radiology Order: CT ABD & PELVIS: No Contrast Test: CT ABD & PELVIS: No Contrast REASON FOR EXAMINATION: Renal colic; ; CT of the abdomen and pelvis without contrast; Clinical statement: Pain.; Technique: Multiple axial CT images were obtained from the base of the lungs to the floor of the pelv; is utilizing 5 mm axial slices without administration of contrast. Coronal and sagittal reconstructio; ns were also obtained.; No comparison is available.; Findings:; Chest: The visualized lung bases are clear.; Abdomen: The kidneys are normal in size bilaterally. There is moderate right-sided hydronephrosis cau; sed by a 3 mm obstructing stone in the proximal right ureter. The left renal collecting system is unr; emarkable. The liver, spleen, pancreas, gallbladder and adrenal glands are unremarkable. The aorta de; monstrates normal caliber and contour. There is no abdominal lymphadenopathy or ascites.; Pelvis: The bowel is unremarkable, with no obstructive or inflammatory changes. The appendix is doroteo; l. The urinary bladder is within normal limits. There is no pelvic lymphadenopathy or ascites. The ot; her pelvic structures appear unremarkable.; Bones: There are no suspicious osseous abnormalities seen.; Impression:; 1. Moderate right-sided hydronephrosis caused by a 3 mm obstructing stone in the proximal right urete; r.; 2. No obstructive or inflammatory bowel changes.; ; Outcome: 05:34 Discharge ordered by Provider. 11 05:50 Discharge Assessment: Patient awake, alert and oriented x 3. No cognitive and/or af2 functional deficits noted. Patient verbalized understanding of disposition instructions. patient administered narcotics - no. The following High Risk Discharge criteria are identified: None. Discharged to home ambulatory. Condition: stable. Discharge instructions given to patient, Instructed on discharge instructions, follow up and referral plans. medication usage, Demonstrated understanding of instructions, medications, Pt was receptive of discharge instructions/ teaching. No special radiology studies were completed. Property :Personal belongings accompany Pt. 05:51 Patient left the ED. af2 Signatures: Dispatcher [employer] EDMS Teresa Escoto RN RN jo3 Schiff, Craig, DO cs11 Alayna Greene RN RN af2 Marla Redding, Reg Reg hs2 Maia Elizabeth Jose, FASHION DESIGNER FASHION DESIGNER [facility] Chart Complete MTDD
== END 2016-07-13 05:51 | disposition home or self-care (01) ==
LOC: M ED 00:36
DX: N20.1 Calculus of ureter (principal)
CPT/HCPCS: 36415; 74176; 80048; 80076; 81001; 82150; 83690; 85025; 87086; 96361; 96374; 96375; 99284; J1170; J1885

== ENCOUNTER 2016-08-21 13:39 | Emergency (ER) | payer OTHER ==
[~2016-08-21] VITALS: Ht 167.6 cm; Wt 79.4 kg
[2016-08-21] MEDS ORDERED: PRAZ5CAP PO (14:05)
[2016-08-21] MEDS ORDERED: AMIT150T PO (14:05)
[2016-08-21] MEDS ORDERED: OXYC1TAB23 PO (14:05)
[2016-08-21] MEDS ORDERED: FLOM5CAP PO (14:05)
[2016-08-21] MEDS ORDERED: NS 1,000 ML IV ONE (14:30)
[2016-08-21] MEDS ORDERED: ONDANSETRON 4MG/2ML VIAL (J2405) IV ONE (14:30)
[2016-08-21] MEDS ORDERED: KETOROLAC 30 MG/ML VIAL (J1885) IV ONE (14:30)
[2016-08-21 14:47] LABS: BASO % 0.2 % (0.0-1.0); EOS # 0.1 K/mm3 (0.0-0.50); EOS % 0.6 % (0.0-3.0); LARGE UNSTAINED CELL # 0.1 K/mm3 (0.0-0.4); LARGE UNSTAINED CELL % 0.7 % (0.0-4.0); LYMPH # 1.3 K/mm3 (1.5-4.5); LYMPH % 10.7 % (24.0-44.0); MEAN CORPUSCULAR HEMOGLOBIN 29.6 pg (27.0-33.0); MEAN CORPUSCULAR HGB CONC 33.5 g/dl (32.0-36.5); MEAN CORPUSCULAR VOLUME 88.6 fl (80.0-96.0); MONO # 0.5 K/mm3 (0.0-0.8); MONO % 4.4 % (0.0-5.0); NEUTROPHILS # 9.6 K/mm3 (1.8-7.7); NEUTROPHILS % 83.2 % (36.0-66.0); PLATELET COUNT, AUTOMATED 259 k/mm3 (150-450); RED CELL DISTRIBUTION WIDTH 13.2 % (11.5-14.5); WHITE BLOOD COUNT 11.5 K/mm3 (4.0-10.0)
--- NOTE | 2016-08-21 15:04 | REP ---
CT ABDOMEN AND PELVIS WITHOUT CONTRAST: CT abdomen and pelvis performed without oral or IV contrast, with sagittal and coronal reconstruction images performed. The visualized lung bases demonstrate no infiltrate. The liver, spleen, adrenals, pancreas, and left kidney are unremarkable. The right kidney demonstrates mild to moderate hydronephrosis. There is also mild to moderate right hydroureter. This is caused by a 4 mm stone in the distal right ureter. The urinary bladder is collapsed and not well evaluated. There is no abdominal aortic aneurysm. There is no adenopathy. There is no free air or free fluid. No bowel wall thickening is seen. There is no evidence of appendicitis. IMPRESSION: Mild to moderate right hydroureteronephrosis is caused by a 4 mm stone in the distal right ureter. Signed by Wayne Buck MD 08/21/2016 05:40 P
[2016-08-21 15:06] LABS: ALBUMIN 4.1 GM/DL (3.2-5.2); ALBUMIN/GLOBULIN RATIO 1.37 (1.00-1.93); ALKALINE PHOSPHATASE 79 U/L (45-117); ALT/SGPT 40 U/L (12-78); ANION GAP 9 MEQ/L (8-16); AST/SGOT 22 U/L (15-37); BILIRUBIN,TOTAL 1.1 MG/DL (0.2-1.0); BLOOD UREA NITROGEN 14 MG/DL (7-18); CALCIUM LEVEL 9.2 MG/DL (8.5-10.1); CARBON DIOXIDE LEVEL 25 MEQ/L (21-32); CHLORIDE LEVEL 106 MEQ/L (98-107); CREATININE FOR GFR 1.35 MG/DL (0.70-1.30); GLOMERULAR FILTRATION RATE > 60.0 (>60); GLUCOSE, FASTING 119 MG/DL (70-105); POTASSIUM SERUM 4.3 MEQ/L (3.5-5.1); SODIUM LEVEL 140 MEQ/L (136-145); TOTAL PROTEIN 7.1 GM/DL (6.4-8.2)
[2016-08-21] MEDS ORDERED: MORPHINE 4 MG/ML 1ML SYRINGE IV ONE (15:15)
[2016-08-21] MEDS ORDERED: ZOFR4TAB3 PO (15:59)
[2016-08-21] MEDS ORDERED: IBUP600T26 PO (15:59)
[2016-08-21 16:03] VITALS: BP 112/65
== END 2016-08-21 16:20 | disposition home or self-care (01) ==
LOC: M ED 14:58
DX: N20.1 Calculus of ureter (principal)
CPT/HCPCS: 74176; 80053; 81001; 85025; 96374; 96375; 99283; J1885; J2405

== ENCOUNTER → 2016-09-27 | Outpatient (CLI) | payer OTHER ==
[~2016-09-27] MED LIST: AMIT150T PO; FLOM5CAP PO; IBUP600T26 PO; OXYC1TAB23 PO; PRAZ5CAP PO; ZOFR4TAB3 PO
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
== END ==
LOC: M PAIN 12:40
PROVIDERS: ATTEND Anesthesiology
DX: G89.29 Other chronic pain (principal); M47.816 Spondylosis without myelopathy or radiculopathy, lumbar region; M47.817 Spondylosis without myelopathy or radiculopathy, lumbosacral region; F43.10 Post-traumatic stress disorder, unspecified; F43.20 Adjustment disorder, unspecified; Z79.899 Other long term (current) drug therapy

== ENCOUNTER → 2016-10-21 | Outpatient (CLI) | payer OTHER ==
[~2016-10-21] MED LIST changes: +BUPIVACAINE HCL 0.25% 30 ML VIAL As Ordered ONE; +ISOVUE-M 300 61% 15ML VIAL (Q9967) As Ordered ONE; +LIDOCAINE 1% SDV INJ 30 ML VIAL As Ordered ONE; +TRIAMCINOLONE ACETONIDE SUSP 40 MG/ML VIAL (J3301) As Ordered ONE; +diazePAM 5 MG TAB As Ordered ONE; +oxyCODONE 5MG TAB As Ordered ONE
--- NOTE | 2016-10-21 15:22 | REP ---
Partial lumbar spine series: Two views. History: Bilateral lumbar facet block for pain. 20 seconds of fluoroscopy time is reported. Findings: A sequence of two last image hold fluoroscopic spot radiographs of the lumbar spine document various needle positions and contrast injections associated with facet injection procedure. Signed by Bala Jimenez MD 10/21/2016 04:47 P
--- NOTE | 2016-10-27 23:18 | ECWPNPC ---
PATIENT NAME: ARMANDO MAURO : 1975 GENDER: MALE VISIT DATE: 10/21/2016 DISCHARGE DATE: 10/21/16 1324 VISIT LOCKED DATE TIME: PHYSICIAN: JESUS WILLIAMSON RESOURCE: JESUS WILLIAMSON REASON FOR APPOINTMENT 1. LFBT HISTORY OF PRESENT ILLNESS HISTORY OF PRESENT ILLNESS: PAIN THE PATIENT DESCRIBES THE PAIN... FALL RISK SCREENING: SCREENING :NO FALLS IN THE PAST YEAR CURRENT MEDICATIONS TAKING AMITRIPTYLINE HCL 150 MG TABLET 1 TABLET ORALLY 50 IN AM/ 100 IN BERYL, NOTES: 10-20-16 7PM TAKING WELLBUTRIN 100 MG TABLET 1 TABLET ORALLY ONCE A DAY, NOTES: 10-20-16 0800 TAKING FISH OIL 1000 MG CAPSULE 1 CAPSULE ORALLY ONCE A DAY, NOTES: 10-20-16 7 PM TAKING VITAMIN D 1000 UNIT CAPSULE 1 CAPSULE ORALLY ONCE A DAY, NOTES: 10-20-16 0800 TAKING PRAZOSIN HCL 2 MG CAPSULE 1 CAPSULE AT BEDTIME ORALLY ONCE A DAY, NOTES: 10-20-16 7 PM TAKING CYCLOBENZAPRINE HCL 10 MG TABLET 1 TABLET NEEDED ORALLY FOR SPASTICITY AND PAIN THREE TIMES A DAY MDD3, NOTES: 10-20-16 5PM TAKING IBUPROFEN 800 MG TABLET 1 TABLET WITH FOOD OR MILK ORALLY NEEDED FOR PAIN THREE TIMES A DAY, NOTES: NONE RECENT MEDICATION LIST REVIEWED AND RECONCILED WITH THE PATIENT PAST MEDICAL HISTORY CHRONIC BACK PAIN HEADACHES PTSD/ ADJUSTMENT DISORDER 1 KIDNEY STONE TINNITUS ALLERGIES N.K.D.A. REVIEW OF SYSTEMS CONSTITUTIONAL: ANY CHANGE IN YOUR MEDICAL CONDITION? NO . CHILLS NO . FEVER NO . INFECTION: DO YOU HAVE NEW INFECTIONS? NO . DO YOU HAVE HISTORY OF MRSA? NO . MUSCULOSKELETAL: ANY NEW PATTERNS OF PAIN OR NUMBNESS? NO . GASTROENTEROLOGY: ANY NEW CHANGE IN BOWEL CONTROL? NO . GENITOURINARY: ANY NEW CHANGE IN BLADDER CONTROL? NO . IS THERE A CHANCE YOU COULD BE ? NO . HEMATOLOGY/LYMPH: DO YOU TAKE ANY BLOOD THINNERS? (FOR EXAMPLE- COUMADIN, PLAVIX, AGGRENOX, PLATEL, PRADAXA, OR XARELTO) NO . WHEN WAS YOUR LAST DOSE? DATE: TIME: . NEUROLOGY: HAVE YOU FALLEN IN THE PAST 6 MONTHS? NO . ANY NEW EXTREMITY NUMBNESS OR WEAKNESS? NO . CARDIOLOGY: DO YOU HAVE A PACEMAKER OR DEFIBRILLATOR? NO . RESPIRATORY: HAVE YOU BEEN SICK IN THE PAST WEEK? NO . FEVER NO . FLU LIKE SYMPTOMS? NO . COUGH NO . INTEGUMENTARY: DO YOU HAVE ANY RASHES OR OPEN SORES? NO . ALLERGIC/IMMUNO: ARE YOU ALLERGIC TO SHELLFISH OR IV DYE? NO . ANY NEW ALLERGIES? NO . PSYCHIATRIC: DO YOU HAVE THOUGHTS OF HURTING YOURSELF OR SOMEONE ELSE? NO . ARE YOU ABUSED, NEGLECTED, OR IN AN UNSAFE ENVIRONMENT? NO . ENDOCRINOLOGY: ARE YOU DIABETIC? NO . OTHER: DO YOU NEED ANY PRESCRIPTIONS? NO . IF YES, PLEASE LIST: ____ . ANY NEW PROBLEMS WITH YOUR MEDICATIONS? NO . WHEN DID YOU LAST EAT? 10-20-16 10 PM . WHEN DID YOU LAST DRINK? 10-20-16 PM . WHAT DID YOU LAST DRINK? WATER . NAME OF PERSON DRIVING YOU HOME? EBONIE ANTON . DO YOU HAVE ANY OTHER QUESTIONS OR CONCERNS NO . REVIEWED BY: PROVIDER: . VITAL SIGNS WT 191.8 LBS, HT 65", BMI 31.91 INDEX, BP 116/84 MM HG, HR 71 /MIN, RR 16 /MIN, TEMP 97.2 F, OXYGEN SAT % 96%, NA INITIALS TL 1111, REVIEWED BY: CM. ASSESSMENTS SPONDYLOSIS WITHOUT MYELOPATHY OR RADICULOPATHY, LUMBAR REGION - M47.816 (PRIMARY) SPONDYLOSIS WITHOUT MYELOPATHY OR RADICULOPATHY, LUMBOSACRAL REGION - M47.817 PROCEDURES PN LUMBAR FACET BLOCK THERAPEUTIC PRE PROCEDURE DIAGNOSIS LUMBAR SPONDYLOSIS, LUMBOSACRAL SPONDYLOSIS POST PROCEDURE DIAGNOSIS LUMBAR SPONDYLOSIS, LUMBOSACRAL SPONDYLOSIS PROCEDURE BILATERAL L4-L5 AND L5-S1 LUMBAR FACET THERAPEUTIC BLOCK SURGEON DR. JESUS WILLIAMSON SEO ENGINEER NONE ANESTHESIA LOCAL PRE PROCEDURE NOTE THE PATIENT HAS A HISTORY OF CHRONIC LOW BACK PAIN. I EVALUATE THE PATIENT AND REVIEWED THE CHART. I WENT OVER THE RISKS, ALTERNATIVES, AND BENEFITS ASSOCIATED WITH THIS PROCEDURE. THE PATIENT WOULD LIKE TO PROCEED AND GIVE CONSENT TO PERFORMED THE PROCEDURE. THE PATIENT DENIES UNEXPLAINABLE WEIGHT LOSS, FEVER, CHILLS, OR NEW CHANGES IN URINARY OR BOWEL CONTROL DESCRIPTION OF PROCEDURE THE PATIENT WAS BROUGHT TO THE PROCEDURE ROOM AND PLACED IN THE PRONE POSITION. THE LUMBOSACRAL AREA WAS CLEANED WITH CHLORAPREP SOLUTION AND DRAPED ASEPTICALLY. THE PROCEDURE WAS DONE UNDER STERILE CONDITIONS. I CHECKED LATERALITY AND THE LEVEL WHERE THE PROCEDURE WAS GOING TO BE PERFORMED WITH THE PATIENT AND THE SUPPORTING STAFF AT THE MOMENT OF THE TIME OUT IN THE PROCEDURE ROOM. UNDER FLUOROSCOPIC GUIDANCE, THE TARGET POINT WAS SELECTED AT THE RIGHT AND LEFT L4-L5 AND L5-S1 FACET JOINT. TARGET POINT WAS SELECTED AFTER LATERAL ROTATION AND TILT OF THE MAGNIFIER OF THE C-ARM. LIDOCAINE 0.5% WAS USED TO NUMB THE SKIN AND THE SUBCUTANEOUS TISSUE BELOW IT. SPINAL NEEDLES, 22-GAUGE, WERE ADVANCED UNDER FLUOROSCOPIC GUIDANCE AND FOLLOWING PATIENT FEEDBACK UNTIL THE TARGETS WERE TOUCHED. THE POSITION OF THE NEEDLES WAS VERIFIED WITH AP AND LATERAL VIEWS. AFTER PROPER POSITION OF THE NEEDLES WAS ACHIEVED, ISOVUE-M DYE 30% 0.1 ML WAS INJECTED SHOWING ADEQUATE SPREAD OF THE DYE. THEN A SOLUTION OF 1.9 ML OF BUPIVACAINE 0.125% OF KENALOG 10 MG WAS INJECTED AT EACH SITE. THERE WAS NO EVIDENCE OF BLOOD, PARESTHESIA OR CEREBROSPINAL FLUID DURING THE PROCEDURE. THE PATIENT WAS SENT TO THE RECOVERY ROOM. THE PATIENT WAS MOVING THE EXTREMITIES AND DOING WELL. THERE WAS NO COMPLICATION DURING THE PROCEDURE. FLUOROSCOPY TIME WAS 20 SECONDS POST PROCEDURE NOTE THE PATIENT WILL BE SEEN IN A FOLLOW UP IN THE NEXT FEW WEEKS. INSTRUCTIONS WERE GIVEN, QUESTIONS WERE ANSWERED, AND THE PATIENT EXPRESSED UNDERSTANDING AND AGREES WITH THE PLAN. I, RAMÓN ROMAN, DOCUMENTED THE ABOVE INFORMATION ACTING A SCRIBE FOR DR. WILLIAMSON. I HAVE REVIEWED THE ABOVE DOCUMENT, WRITTEN BY RAMÓN ROMAN SCRIBTeresita AND I VERIFY THAT IT IS ACCURATE DIAGNOSTIC IMAGING [facility] FACET BLOCK (PAIN)[id number] PROCEDURE CODES 89355 INJ PARAVERT F JNT L/S 1 LEV 43329 INJ PARAVERT F JNT L/S 2 LEV 6045F RADXPS IN END [id number] PXD DISPOSITION & COMMUNICATION FOLLOW UP 3 WEEKS ELECTRONICALLY SIGNED BY JESUS WILLIAMSON MD ON 10/27/2016 AT 07:33 PM EDT DISCLAIMER : THIS IS A VISIT SUMMARY EXTRACTED FROM THE [employer] CHART. IT IS NOT A COPY OF THE [employer] PROGRESS NOTE. MTDD
== END ==
LOC: M PAIN 11:00
PROVIDERS: ATTEND Anesthesiology
DX: G89.29 Other chronic pain (principal); M47.816 Spondylosis without myelopathy or radiculopathy, lumbar region; M47.817 Spondylosis without myelopathy or radiculopathy, lumbosacral region; F43.10 Post-traumatic stress disorder, unspecified; Z79.891 Long term (current) use of opiate analgesic; Z79.899 Other long term (current) drug therapy
CPT/HCPCS: 64493; 64494; J3301; Q9967

== ENCOUNTER → 2016-12-03 | Outpatient (CLI) | payer OTHER ==
[~2016-12-03] MED LIST changes: -BUPIVACAINE HCL 0.25% 30 ML VIAL As Ordered ONE; +IBUP-1022 PO; -IBUP600T26 PO; -ISOVUE-M 300 61% 15ML VIAL (Q9967) As Ordered ONE; -LIDOCAINE 1% SDV INJ 30 ML VIAL As Ordered ONE; -TRIAMCINOLONE ACETONIDE SUSP 40 MG/ML VIAL (J3301) As Ordered ONE; -diazePAM 5 MG TAB As Ordered ONE; -oxyCODONE 5MG TAB As Ordered ONE
--- NOTE | 2016-12-17 01:51 | ECWPNPC ---
PATIENT NAME: ARMANDO MAURO : 1975 GENDER: MALE VISIT DATE: 12/03/2016 DISCHARGE DATE: 12/03/16 1703 VISIT LOCKED DATE TIME: PHYSICIAN: JESUS WILLIAMSON RESOURCE: JESUS WILLIAMSON REASON FOR APPOINTMENT 1. LOW BACK PAIN HISTORY OF PRESENT ILLNESS HISTORY OF PRESENT ILLNESS: PAIN THE PATIENT DESCRIBES THE PAIN... 40 YEAR OLD MALE PATIENT WITH HISTORY OF CHRONIC LOW BACK PAIN. PATIENT DESCRIBES THE PAIN ACHING, STABBING, SHARP AND HAVING IT ALL THE TIME WITH THE PAIN COMING AND GOING WITH A PAIN SCORE OF 5/10. PATIENT RECEIVED A LUMBAR FACET BLOCK THERAPEUTIC ON 10/21/16 AND STATES THAT HE HAS HAD OVER 50% RELIEF FROM THE PAIN FOR OVER 5 WEEKS AND REPORTS HAVING INCREASED MOBILITY AND FUNCTIONALITY. MR. MAURO ALSO REPORTS BEING IN PHYSICAL THERAPY AND STATES THAT IT DOES HELP. CURRENTLY THE PATIENT IS USING AMITRIPTYLINE, CYCLOBENZAPRINE, AND IBUPROFEN TO AID IN PAIN RELIEF AND REPORTS THE MEDICATIONS KEEPING HIM MOBILE AND FUNCTIONAL. PATIENT DENIES UNEXPLAINABLE WEIGHT LOSS, FEVER, CHILLS, NEW CHANGES ON HER URINARY OR BOWEL CONTROL. FALL RISK SCREENING: SCREENING :NO FALLS IN THE PAST YEAR CURRENT MEDICATIONS TAKING AMITRIPTYLINE HCL 150 MG TABLET 1 TABLET ORALLY 50 IN AM/ 100 IN BERYL TAKING WELLBUTRIN 100 MG TABLET 1 TABLET ORALLY ONCE A DAY TAKING FISH OIL 1000 MG CAPSULE 1 CAPSULE ORALLY ONCE A DAY TAKING VITAMIN D 43924 U TABLET 1 CAPSULE ORALLY WEEKLY TAKING PRAZOSIN HCL 2 MG CAPSULE 1 CAPSULE AT BEDTIME ORALLY ONCE A DAY TAKING CYCLOBENZAPRINE HCL 10 MG TABLET 1 TABLET NEEDED ORALLY FOR SPASTICITY AND PAIN THREE TIMES A DAY MDD3 TAKING IBUPROFEN 800 MG TABLET 1 TABLET WITH FOOD OR MILK ORALLY NEEDED FOR PAIN THREE TIMES A DAY MEDICATION LIST REVIEWED AND RECONCILED WITH THE PATIENT PAST MEDICAL HISTORY CHRONIC BACK PAIN HEADACHES PTSD/ ADJUSTMENT DISORDER 1 KIDNEY STONE TINNITUS ALLERGIES N.K.D.A. SURGICAL HISTORY VASECTOMY VASECTOMY REVERSAL REVIEW OF SYSTEMS REVIEWED BY: PROVIDER: JESUS WILLIAMSON MD . CONSTITUTIONAL: ANY CHANGE IN YOUR MEDICAL CONDITION? NO . CHILLS NO . FEVER NO . INFECTION: DO YOU HAVE NEW INFECTIONS? NO . DO YOU HAVE HISTORY OF MRSA? NO . MUSCULOSKELETAL: ANY NEW PATTERNS OF PAIN OR NUMBNESS? NO . GASTROENTEROLOGY: ANY NEW CHANGE IN BOWEL CONTROL? NO . GENITOURINARY: ANY NEW CHANGE IN BLADDER CONTROL? NO . IS THERE A CHANCE YOU COULD BE ? NO . HEMATOLOGY/LYMPH: DO YOU TAKE ANY BLOOD THINNERS? (FOR EXAMPLE- COUMADIN, PLAVIX, AGGRENOX, PLATEL, PRADAXA, OR XARELTO) NO . WHEN WAS YOUR LAST DOSE? DATE: TIME: . NEUROLOGY: HAVE YOU FALLEN IN THE PAST 6 MONTHS? NO . ANY NEW EXTREMITY NUMBNESS OR WEAKNESS? NO . CARDIOLOGY: DO YOU HAVE A PACEMAKER OR DEFIBRILLATOR? NO . RESPIRATORY: HAVE YOU BEEN SICK IN THE PAST WEEK? NO . FEVER NO . FLU LIKE SYMPTOMS? NO . COUGH NO . INTEGUMENTARY: DO YOU HAVE ANY RASHES OR OPEN SORES? NO . ALLERGIC/IMMUNO: ARE YOU ALLERGIC TO SHELLFISH OR IV DYE? NO . ANY NEW ALLERGIES? NO . PSYCHIATRIC: DO YOU HAVE THOUGHTS OF HURTING YOURSELF OR SOMEONE ELSE? NO . ARE YOU ABUSED, NEGLECTED, OR IN AN UNSAFE ENVIRONMENT? NO . ENDOCRINOLOGY: ARE YOU DIABETIC? NO . OTHER: DO YOU NEED ANY PRESCRIPTIONS? YES, FLEXARIL . IF YES, PLEASE LIST: ____ . ANY NEW PROBLEMS WITH YOUR MEDICATIONS? NO . WHEN DID YOU LAST EAT? ____ . WHEN DID YOU LAST DRINK? ____ . WHAT DID YOU LAST DRINK? ____ . NAME OF PERSON DRIVING YOU HOME? ____ . DO YOU HAVE ANY OTHER QUESTIONS OR CONCERNS NO . VITAL SIGNS WT 190.0 LBS, HT 65", BMI 31.61 INDEX, BP 126/81 MM HG, HR 74 /MIN, RR 16 /MIN, TEMP 98.0 F, OXYGEN SAT % 97%, NA INITIALS SC 15:59. EXAMINATION : PATIENT IS ALERT O X 3 AND COOPERATIVE. TENDERNESS IN THE LOWER BACK AND PARASPINAL MUSCLE GROUP ALONG WITH THE FACET JOINTS. MRI DONE ON 04/01/2015 SHOWS A DISC BULGE AT L3-L4 AND FACET HYPERTROPHY. ASSESSMENTS SPONDYLOSIS WITHOUT MYELOPATHY OR RADICULOPATHY, LUMBAR REGION - M47.816 (PRIMARY) SPONDYLOSIS WITHOUT MYELOPATHY OR RADICULOPATHY, LUMBOSACRAL REGION - M47.817 TREATMENT SPONDYLOSIS WITHOUT MYELOPATHY OR RADICULOPATHY, LUMBAR REGION REFILL CYCLOBENZAPRINE HCL TABLET, 10 MG, 1 TABLET NEEDED, ORALLY FOR SPASTICITY AND PAIN, BEFORE BEDTIME MAY REPEAT IN 6 HRS MDD2, 30 DAY(S), 50, REFILLS 2 NOTES: WE DISCUSSED SEVERAL ISSUES WITH MR. MAURO'S PAIN MANAGEMENT CASE. PATIENT WILL CONTINUE USING CYCLOBENZAPRINE FOR THE MUSCLE SPASMS AND WILL START CELEBREX FOR THE INFLAMMATION. PATIENT WAS ADVISED TO STOP THE MEDICATION IF HE HAS ANY ADVERSE SIDE EFFECTS. PATIENT IS DOING WELL FROM THE THERAPEUTIC FACET BLOCK. WE DISCUSSED MOVING FORWARD WITH A RADIOFREQUENCY IN THE FUTURE DUE TO THE PAIN STARTING TO RETURN. MR. MAURO IS AWARE THAT HE WILL NEED TO HAVE TWO DIAGNOSTIC TESTS PRIOR TO THE RADIOFREQUENCY. PATIENT WILL RETURN TO THE CLINIC IN 1 MONTH TO FURTHER DISCUSS THE DIAGNOSTIC TEST IS THE PAIN RETURNS. INSTRUCTIONS WERE GIVEN, QUESTIONS WERE ANSWERED, PATIENT REPORTS UNDERSTANDING AND AGREES WITH THE PLAN. I, CHRISTIANO NICOLE, DOCUMENTED THE ABOVE INFORMATION ACTING A SCRIBE FOR DR. WILLIAMSON. I HAVE REVIEWED THE ABOVE DOCUMENT, WRITTEN BY CHRISTIANO ABEBE AND I VERIFY THAT IT IS ACCURATE. OTHERS START CELEBREX CAPSULE, 200 MG, 1 CAPSULE WITH FOOD, ORALLY, ONCE A DAY FOR PAIN, 30 DAY(S), 30, REFILLS 1 PROCEDURE CODES FA211 ESTABILISHED PATIENT [facility] FACILITY CHARGE G8427 DOC MEDS VERIFIED W/PT OR RE G8730 PAIN ASSESS POS TOOL F/U PLAN DOC DISPOSITION & COMMUNICATION FOLLOW UP 3 WEEKS ELECTRONICALLY SIGNED BY JESUS WILLIAMSON MD ON 12/16/2016 AT 11:37 AM EDT DISCLAIMER : THIS IS A VISIT SUMMARY EXTRACTED FROM THE [employer] CHART. IT IS NOT A COPY OF THE [employer] PROGRESS NOTE. DONTAE
== END ==
LOC: M PAIN 15:40
PROVIDERS: ATTEND Anesthesiology
DX: G89.29 Other chronic pain (principal); M47.816 Spondylosis without myelopathy or radiculopathy, lumbar region; M47.817 Spondylosis without myelopathy or radiculopathy, lumbosacral region; F43.10 Post-traumatic stress disorder, unspecified; Z79.899 Other long term (current) drug therapy

== ENCOUNTER → 2017-01-08 | Outpatient (CLI) | payer OTHER ==
--- NOTE | 2017-01-19 23:29 | ECWPNPC ---
PATIENT NAME: ARMANDO MAURO : 1975 GENDER: MALE VISIT DATE: 01/08/2017 DISCHARGE DATE: 01/08/17 0959 VISIT LOCKED DATE TIME: PHYSICIAN: HOLLY MCKEON RESOURCE: HOLLY MCKEON REASON FOR APPOINTMENT 1. BACK PAIN HISTORY OF PRESENT ILLNESS HISTORY OF PRESENT ILLNESS: PAIN THE PATIENT DESCRIBES THE PAIN... FALL RISK SCREENING: SCREENING :NO FALLS IN THE PAST YEAR TODAY'S VISIT: NOTES: RATES PAIN LEVEL TODAY 4/10. DESCRIBES PAIN INTERMITTANT AND SHARP. PAIN IS CENTERED IN LOW BACK. THERE IS NO RADIATION TO THE LEGS. PAIN AFFFECTS ABILITY TO RUN, AND OCCASIONALLY TO MOVE TO GET OUT OF BED. PROLONGED STANDING IS ALSO DIFFICULT. REPORTS SLEEP IS RESTFUL. MEDS ARE HELPFUL.. CURRENT MEDICATIONS TAKING AMITRIPTYLINE HCL 150 MG TABLET 1 TABLET ORALLY 50 IN AM/ 100 IN BERYL TAKING WELLBUTRIN 100 MG TABLET 1 TABLET ORALLY ONCE A DAY TAKING FISH OIL 1000 MG CAPSULE 1 CAPSULE ORALLY ONCE A DAY TAKING VITAMIN D 34969 U TABLET 1 CAPSULE ORALLY WEEKLY TAKING PRAZOSIN HCL 2 MG CAPSULE 1 CAPSULE AT BEDTIME ORALLY ONCE A DAY TAKING IBUPROFEN 800 MG TABLET 1 TABLET WITH FOOD OR MILK ORALLY NEEDED FOR PAIN THREE TIMES A DAY TAKING CELEBREX 200 MG CAPSULE 1 CAPSULE WITH FOOD ORALLY ONCE A DAY FOR PAIN TAKING CYCLOBENZAPRINE HCL 10 MG TABLET 1 TABLET NEEDED ORALLY FOR SPASTICITY AND PAIN BEFORE BEDTIME MAY REPEAT IN 6 HRS MDD2 MEDICATION LIST REVIEWED AND RECONCILED WITH THE PATIENT PAST MEDICAL HISTORY CHRONIC BACK PAIN HEADACHES PTSD/ ADJUSTMENT DISORDER 1 KIDNEY STONE TINNITUS ALLERGIES N.K.D.A. SURGICAL HISTORY VASECTOMY VASECTOMY REVERSAL REVIEW OF SYSTEMS REVIEWED BY: PROVIDER: HOLLY BHATT . CONSTITUTIONAL: ANY CHANGE IN YOUR MEDICAL CONDITION? NO . CHILLS NO . FEVER NO . INFECTION: DO YOU HAVE NEW INFECTIONS? NO . DO YOU HAVE HISTORY OF MRSA? NO . MUSCULOSKELETAL: ANY NEW PATTERNS OF PAIN OR NUMBNESS? NO . GASTROENTEROLOGY: ANY NEW CHANGE IN BOWEL CONTROL? NO . GENITOURINARY: ANY NEW CHANGE IN BLADDER CONTROL? NO . IS THERE A CHANCE YOU COULD BE ? NO . HEMATOLOGY/LYMPH: DO YOU TAKE ANY BLOOD THINNERS? (FOR EXAMPLE- COUMADIN, PLAVIX, AGGRENOX, PLATEL, PRADAXA, OR XARELTO) NO . WHEN WAS YOUR LAST DOSE? DATE: TIME: . NEUROLOGY: HAVE YOU FALLEN IN THE PAST 6 MONTHS? NO . ANY NEW EXTREMITY NUMBNESS OR WEAKNESS? NO . CARDIOLOGY: DO YOU HAVE A PACEMAKER OR DEFIBRILLATOR? NO . RESPIRATORY: HAVE YOU BEEN SICK IN THE PAST WEEK? NO . FEVER NO . FLU LIKE SYMPTOMS? NO . COUGH NO . INTEGUMENTARY: DO YOU HAVE ANY RASHES OR OPEN SORES? NO . ALLERGIC/IMMUNO: ARE YOU ALLERGIC TO SHELLFISH OR IV DYE? NO . ANY NEW ALLERGIES? NO . PSYCHIATRIC: DO YOU HAVE THOUGHTS OF HURTING YOURSELF OR SOMEONE ELSE? NO . ARE YOU ABUSED, NEGLECTED, OR IN AN UNSAFE ENVIRONMENT? NO . ENDOCRINOLOGY: ARE YOU DIABETIC? NO . OTHER: DO YOU NEED ANY PRESCRIPTIONS? NO . IF YES, PLEASE LIST: ____ . ANY NEW PROBLEMS WITH YOUR MEDICATIONS? NO . WHEN DID YOU LAST EAT? ____ . WHEN DID YOU LAST DRINK? ____ . WHAT DID YOU LAST DRINK? ____ . NAME OF PERSON DRIVING YOU HOME? ____ . DO YOU HAVE ANY OTHER QUESTIONS OR CONCERNS NO . VITAL SIGNS WT 190 LBS, HT 65", BMI 31.61 INDEX, BP 152/84 MM HG, HR 58 /MIN, RR 16 /MIN, TEMP 97.4 F, OXYGEN SAT % 96%, NA INITIALS SC 09:32, REVIEWED BY: SMITHA. EXAMINATION GENERAL EXAMINATION: PSYCHALERT , ORIENTED X 3 , APPROPRIATE MOOD AND AFFECT . LUNGS:CLEAR TO AUSCULTATION BILATERALLY. HEART:HEART RATE REGULAR. MUSCULOSKELETAL:RISES EASIY TO A STANDING POSITION., MUSCLE STRENGTH TESTING 5/5 BILATERAL LOWER EXTREMITIES.TENDER TO PALPATION OVER LUMBAR SPINPIS PROCESSES AND FACETS. FEW, TRIGGER POINTS IDENTIFIED ACROSS SACRUM.. ASSESSMENTS SPONDYLOSIS WITHOUT MYELOPATHY OR RADICULOPATHY, LUMBAR REGION - M47.816 (PRIMARY) SPONDYLOSIS WITHOUT MYELOPATHY OR RADICULOPATHY, LUMBOSACRAL REGION - M47.817 TREATMENT SPONDYLOSIS WITHOUT MYELOPATHY OR RADICULOPATHY, LUMBAR REGION NOTES: OK TO CALL FOR BILATERAL LUMBAR FACET BLOCK. CONTINUE EXERCISE PROGRAM. CONTINUE TENS UNIT. CONSIDER INVERSION TABLE. CALL WHEN SCRIPTS DUE. PROCEDURE CODES FA211 ESTABILISHED PATIENT [facility] FACILITY CHARGE DISPOSITION & COMMUNICATION FOLLOW UP 6 WEEKS (REASON: LOW BACK) ELECTRONICALLY SIGNED BY LYDIA MERCHANT ON 01/19/2017 AT 03:47 PM EDT DISCLAIMER : THIS IS A VISIT SUMMARY EXTRACTED FROM THE [employer] CHART. IT IS NOT A COPY OF THE [employer] PROGRESS NOTE. DONTAE
== END ==
LOC: M PAIN 09:30
PROVIDERS: ATTEND Nurse Practitioner Family
DX: G89.29 Other chronic pain (principal); M47.816 Spondylosis without myelopathy or radiculopathy, lumbar region; M47.817 Spondylosis without myelopathy or radiculopathy, lumbosacral region; F43.10 Post-traumatic stress disorder, unspecified; Z79.899 Other long term (current) drug therapy